=== PATIENT | male | born 1990 | race Caucasian/White ===

== ENCOUNTER 2021-03-12 11:41 | Emergency (ER) | payer BC, OTHER ==
[~2021-03-12] VITALS: Ht 177.8 cm; Wt 83.9 kg
[~2021-03-12 11:41] MED LIST: ACET325 PO; ALBU90OI INH; CYCL10 PO; DIPH25 PO; FAMO20 PO; PRED20 PO; RXHYDACE PO; TRAM50 PO
[2021-03-12] MEDS ORDERED: HYDROCODONE-AC1 EA10 PO (12:22)
== END 2021-03-12 12:29 | disposition home or self-care (01) ==
LOC: ER 11:41
DX: S01.01XA Laceration without foreign body of scalp, initial encounter (principal); Z88.0 Allergy status to penicillin; X58.XXXA Exposure to other specified factors, initial encounter
CPT/HCPCS: 12001; 99283-25

== ENCOUNTER 2021-03-17 16:58 | Emergency (ER) | payer BC, OTHER ==
[~2021-03-17] VITALS: Ht 177.8 cm; Wt 61.2 kg
[~2021-03-17 16:58] MED LIST changes: +HYDROCODONE-AC1 EA10 PO
== END 2021-03-17 17:07 | disposition home or self-care (01) ==
LOC: ER 16:58
DX: S01.01XD Laceration without foreign body of scalp, subsequent encounter (principal); Z88.0 Allergy status to penicillin

== ENCOUNTER 2022-02-17 12:24 | Emergency (ER) | payer BC, OTHER ==
[~2022-02-17] VITALS: Ht 180.3 cm; Wt 86.2 kg
[2022-02-17] MEDS ORDERED: CEPH500 PO (13:36)
== END 2022-02-17 14:31 | disposition home or self-care (01) ==
LOC: ER 12:24
DX: S61.213A Laceration without foreign body of left middle finger without damage to nail, initial encounter (principal); W26.0XXA Contact with knife, initial encounter; Z88.0 Allergy status to penicillin
CPT/HCPCS: 73140